=== PATIENT | male | born 1950 ===

== ENCOUNTER 2021-02-28 10:54 | Emergency (ER) | payer MEDICARE, SELFPAY ==
[2021-02-28 10:57] VITALS: BP 132/74; PULSE 73; RESP 18; TEMP 36.4; O2SAT 97
--- NOTE | 2021-02-28 12:26 | PC.NURSE ---
Patient states he will come back another time since it is busy. Patient states he will return if he feels worse or is concerned
== END 2021-02-28 12:30 | disposition left against medical advice (07) ==
LOC: ANHED 13:05
PROVIDERS: PCP Family Medicine
DX: Z53.21 Procedure and treatment not carried out due to patient leaving prior to being seen by health care provider (principal)
CPT/HCPCS: 99199